=== PATIENT | male | born 1960 | race Caucasian/White ===

== ENCOUNTER 2022-06-16 16:24 | Emergency (ER) | payer BC ==
[~2022-06-16] VITALS: Ht 172.7 cm; Wt 81.6 kg
[2022-06-16 16:41] VITALS: BP_SYST 111
--- NOTE | 2022-06-16 17:20 | NUR ---
Pt brought by self, A&Ox4, pt presents to ER with L shoulder pain ,denies trauma, skin pink and warm, cap refill <3.
[2022-06-16 18:20] LABS: BASOPHILS # (AUTO) 0.1 K/uL (0.0-0.2); BASOPHILS % (AUTO) 0.6 % (0.0-2.0); EOSINOPHILS # (AUTO) 0.1 K/uL (0.0-0.4); EOSINOPHILS % (AUTO) 0.9 % (0.0-4.0); HEMATOCRIT 41.4 % (36-54); LYMPHOCYTES # (AUTO) 2.7 K/uL (1.0-5.5); LYMPHOCYTES % (AUTO) 32.5 % (20.5-51.5); MEAN CORPUSCULAR HEMOGLOBIN 26 pg (27-31); MEAN CORPUSCULAR HGB CONC 34 % (32-36); MEAN CORPUSCULAR VOLUME 78 fL (79.0-98.0); MONOCYTES # (AUTO) 0.6 K/uL (0.0-1.0); MONOCYTES % (AUTO) 6.6 % (1.7-9.3); NEUTROPHILS % (AUTO) 59.4 % (40.0-70.0); PLATELET COUNT (AUTO) 180 K/uL (130-430); RED BLOOD CELL COUNT(AUTO) 5.32 MIL/uL (4.2-6.2); RED CELL DISTRIBUTION WIDTH 14.5 % (9.0-15.0); WHITE BLOOD COUNT (AUTO) 8.4 K/uL (4.8-10.8)
[2022-06-16 19:21] LABS: CHLORIDE 103 mmol/L (98-107)
[2022-06-16 19:22] LABS: ANION GAP 4 (5-15); ASPARTATE AMINOTRANSFERASE 22 U/L (10-37); CALCIUM 9.3 mg/dL (8.4-11.0); CREATININE 0.97 mg/dL (0.55-1.30); GFR AFRICAN AMERICAN 102 mL/min (>90); GLUCOSE 78 mg/dL (70-99); TOTAL BILIRUBIN 0.5 mg/dL (0.0-1.0); UREA NITROGEN, BLOOD 20 mg/dL (8-21)
[2022-06-16 19:23] LABS: ALANINE AMINOTRANSFERASE 30 U/L (12-78); C-REACTIVE PROTEIN QUANT < 0.2 mg/dL (0-0.5); URIC ACID 5.1 mg/dL (2.4-7.0)
[2022-06-16 19:41] LABS: ERYTHROCYTE SEDIMENTATION RATE 4 MM/HR (0-15)
--- NOTE | 2022-06-16 19:50 | NUR ---
DR. HOLLIS AT BEDSIDE WITH PATIENT FOR EVALUATION.
[2022-06-16] MEDS ORDERED: IBUP-1971 PO (19:52)
[2022-06-16 20:04] VITALS: BP_SYST 111
--- NOTE | 2022-06-16 20:04 | NUR ---
Patient given written and verbal discharge instructions and verbalizes understanding. ER Dr. Rogers discussed with patient the results and treatment provided. Patient in stable condition. ID arm band removed. Rx of motrin given. Patient educated on pain management and to follow up with PMD. Pain Scale 0. Opportunity for questions provided and answered. Medication side effect fact sheet provided. Patient given arm sling for support and comfort per MD order. Pt educated on how to apply and remove sling.
== END 2022-06-16 20:04 | disposition home or self-care (01) ==
LOC: SED 16:24
DX: M75.22 Bicipital tendinitis, left shoulder (principal); M25.512 Pain in left shoulder; Z88.0 Allergy status to penicillin; Z79.899 Other long term (current) drug therapy
CPT/HCPCS: 36415; 73030; 80053; 84550; 85025; 85651-TC; 86140; 99284